=== PATIENT | male | born 1980 | race Caucasian/White ===

== ENCOUNTER 2016-11-17 11:56 | Emergency (ER) | payer OTHER ==
[2016-11-17 13:00] LABS: HEMOGLOBIN 14.4 gm/dl (14.0-17.5); RED BLOOD COUNT 4.51 M/UL (4.20-5.50); WHITE BLOOD COUNT 10.4 K/UL (4.5-11.0)
[2016-11-17 13:19] LABS: BUN/CREATININE RATIO 8 (0-10)
== END 2016-11-17 18:43 | disposition home or self-care (01) ==
LOC: ER1 11:56
PROVIDERS: Specialist/Technologist Athletic Trainer
DX: M54.5 Low back pain (principal); G89.29 Other chronic pain; R10.11 Right upper quadrant pain; I10 Essential (primary) hypertension; F17.210 Nicotine dependence, cigarettes, uncomplicated; Z88.0 Allergy status to penicillin
CPT/HCPCS: 36415; 76705; 80053; 81001; 85025; 93005; 96374; 96375; 96376; 99284; J2270; J2405; J2930